=== PATIENT | male | born 1970 | race Caucasian/White ===

== ENCOUNTER → 2020-04-24 11:12 | Outpatient (BNVA) | payer OTHER, SELFPAY | PROVIDERS: Family Provider Family Medicine; Visit Provider Nurse Practitioner Family | DX: Z20.828 Contact with and (suspected) exposure to other viral communicable diseases (principal) | CPT/HCPCS: 87635 ==

== ENCOUNTER 2020-08-07 13:34 | Outpatient (CLI) | payer OTHER, SELFPAY ==
--- NOTE | 2020-08-07 14:00 | CT_ITS ---
WS: [id number] CT scan of the abdomen with Oral and IV contrast. Additional two-dimensional coronal and sagittal rec onstruction was performed. 08/07/2020 Clinical Data: LEFT UPPER QUADRANT ABDOMINAL PAIN, DIABETES MELLITUS Comparison: None. DLP: 754.[address] scans at [facility] use at least one of these dose optimization techniques: automat ed exposure control; mA and/or kV adjustment per patient size (includes targeted exams where dose is matched to clinical indication); or iterative reconstruction. Findings: The lower lungs show no nodules, masses or effusions. The liver, gallbladder, spleen, adrenal glands and pancreas are normal. The kidneys show equal bilateral contrast excretion a small intrarenal left cyst. No masses, hydronep hrosis or renal calculi are seen.. The abdominal aorta is normal in size with minimal calcification in the wall.. No appendicitis or diverticulitis is seen. Oral contrast is in the stomach and small bowel and there is no bowel dilatation. No abscess, adenopathy, ascites, mass, obstruction or free air is seen. There is a 0.7 cm spondylolisthesis at L5-S1 with bilateral spondylolysis. CT/CT abdomen w con* [id number] IMPRESSION: Negative for acute intra-abdominal abnormalities.
[2020-08-07] MEDS: iohexol 300 mg/mL 50 mL Btl PO (14:17)
[2020-08-07] MEDS: iohexol 300 mg/mL 100 mL Btl IV (14:32)
== END 2020-08-07 13:35 | disposition home or self-care (01) ==
LOC: RADWPI 13:39
PROVIDERS: PCP Family Medicine; Visit Provider Family Medicine
DX: R10.12 Left upper quadrant pain (principal); E11.40 Type 2 diabetes mellitus with diabetic neuropathy, unspecified
CPT/HCPCS: 74160; Q9967

== ENCOUNTER → 2020-08-28 14:17 | Outpatient (BNVA) | payer OTHER, SELFPAY | PROVIDERS: PCP Family Medicine; Referring Provider Family Medicine; Visit Provider Internal Medicine | DX: E07.9 Disorder of thyroid, unspecified (principal); E11.69 Type 2 diabetes mellitus with other specified complication; E66.9 Obesity, unspecified; N52.9 Male erectile dysfunction, unspecified; R10.13 Epigastric pain; R37 Sexual dysfunction, unspecified; R63.4 Abnormal weight loss | CPT/HCPCS: 99205 ==

== ENCOUNTER 2020-09-03 10:58 | Outpatient (CLI) | payer OTHER, SELFPAY ==
[2020-09-03 11:52] LABS: Free T4 Free Thyroxine 1.66 ng/dL (0.82-1.77); Lipase 36 U/L (13-60); Testosterone Total 324.5 ng/dL (249-836); Thyroid Stimulating Hormone 2.47 uIU/mL (0.27-4.20)
[2020-09-03 12:03] LABS: Cortisol Random 16.34 ug/mL (2.47-19.5)
[2020-09-04 12:18] LABS: T3 Total 134 ng/dL (76-181)
[2020-09-07 12:18] LABS: Testosterone, Free 40.3 pg/mL (46.0-224.0)
== END 2020-09-03 10:59 | disposition home or self-care (01) ==
LOC: LAB 11:04
PROVIDERS: PCP Family Medicine; Visit Provider Internal Medicine
DX: R63.4 Abnormal weight loss (principal); R10.9 Unspecified abdominal pain; E07.9 Disorder of thyroid, unspecified; N52.9 Male erectile dysfunction, unspecified; R37 Sexual dysfunction, unspecified
CPT/HCPCS: 36415; 82533; 83690; 84402; 84403; 84439; 84443; 84480

== ENCOUNTER → 2020-09-12 10:02 | Outpatient (BNVA) | payer OTHER, SELFPAY | PROVIDERS: PCP Family Medicine; Visit Provider Internal Medicine | DX: E11.9 Type 2 diabetes mellitus without complications (principal); N52.9 Male erectile dysfunction, unspecified; R10.13 Epigastric pain; R63.4 Abnormal weight loss; R79.89 Other specified abnormal findings of blood chemistry | CPT/HCPCS: 99214 ==

== ENCOUNTER 2020-09-19 07:56 | Outpatient (CLI) | payer OTHER, SELFPAY ==
[2020-09-19 10:14] LABS: Luteinizing Hormone 2.9 mIU/mL (1.7-8.6)
[2020-09-19 13:17] LABS: Testosterone Total 363.8 ng/dL (249-836)
[2020-09-19 13:18] LABS: Estmated Average Glucose 128; Hemoglobin A1C 6.1 % (4.0-6.0)
[2020-09-23 20:08] LABS: Testosterone, Free 38.5 pg/mL (46.0-224.0)
== END 2020-09-19 07:57 | disposition home or self-care (01) ==
PROVIDERS: PCP Family Medicine; Visit Provider Internal Medicine
DX: R79.89 Other specified abnormal findings of blood chemistry (principal); E11.9 Type 2 diabetes mellitus without complications
CPT/HCPCS: 83001; 83002; 83036; 84402; 84403

== ENCOUNTER 2020-09-26 07:41 | Outpatient (CLI) | payer OTHER, SELFPAY ==
[2020-10-02 15:43] LABS: Testosterone, Free 29.7 pg/mL (46.0-224.0)
== END 2020-09-26 07:42 | disposition home or self-care (01) ==
PROVIDERS: PCP Family Medicine; Visit Provider Internal Medicine
DX: R79.89 Other specified abnormal findings of blood chemistry (principal)
CPT/HCPCS: 84402

== ENCOUNTER → 2023-03-29 13:08 | Outpatient (BNVA) | payer OTHER, SELFPAY | PROVIDERS: PCP Family Medicine; Visit Provider Clinical Nurse Specialist Adult Health | DX: R00.2 Palpitations (principal) | CPT/HCPCS: 80053; 80061; 83036; 84443; 85025 ==

== ENCOUNTER 2023-04-08 14:46 | Outpatient (CLI) | payer OTHER, SELFPAY ==
--- NOTE | 2023-04-08 15:00 | USCV_ITS ---
Tico Nichole Age: 52 Gender: M : 1970 Exam Date: 04/08/2023 15:00 Ordering Phys: Rodriguez Wagoner NP Technologist: RADHA Exam Location: [facility] [place] Indication: Palp, SOB and pain lt shoulder BP: 132 / 98 HR: 64 Rhythm: Sinus Technical Quality: Adequate MEASUREMENTS (Male / Female) Normal Values 2D ECHO LV Diastolic Diameter PLAX 4.2 cm 4.2 - 5.9 / 3.9 - 5.3 cm LV Systolic Diameter PLAX 2.6 cm IVS Diastolic Thickness 1.1 cm 0.6 - 1.0 / 0.6 - 0.9 cm IVS Systolic Thickness 1.1 cm LVPW Diastolic Thickness 1.2 cm 0.6 - 1.0 / 0.6 - 0.9 cm LVPW Systolic Thickness 1.5 cm LVOT Diameter 2.1 cm LV Ejection Fraction 2D Teich 69.7 % LV Ejection Fraction MOD 2C 64.5 % LV Ejection Fraction 2C AL 65.4 % LA Diameter 2.7 cm LA Width 2.5 cm LA Height 3.1 cm RA Width 3.6 cm RA Height 3.7 cm Aorta at Sinotubular Diameter 3.3 cm IVC Diameter 2.0 cm M-MODE Aortic Annulus Diameter 3.9 cm LA Ao Ratio MM 0.8 MV E Point Septal Separation 0.5 cm DOPPLER AV Peak Velocity 108.0 cm/s LVOT Peak Velocity 101.0 cm/s AV Area Cont Eq vti 3.0 cm squared AV Area Cont Eq pk 3.1 cm squared MV Area PHT 3.9 cm squared Mitral E to A Ratio 1.2 MV E' Velocity 44.0 cm/s Mitral E to MV E' Ratio 6.9 Mitral E to LV E' Lateral Ratio 5.2 Mitral E to LV E' Septal Ratio 10.4 TR Peak Velocity 136.4 cm/s TR Peak Gradient 7.4 mmHg TR Mean Velocity 99.7 cm/s TR Mean Gradient 4.6 mmHg TR Velocity Time Integral 32.0 cm TV Peak E Velocity 63.0 cm/s RV Acceleration Time 0.1 s RV Ejection Time 0.4 s RV AcT/ET 0.3 FINDINGS Left Ventricle Left ventricle is normal in size. LV systolic function is normal with EF of 60 to 65%. No regional wall motion abnormalities are seen. Right Ventricle Normal in size and function Right Atrium Normal in size Left Atrium Normal in size Mitral Valve Structurally normal mitral valve. Aortic Valve Structurally normal aortic valve. No significant stenosis or regurgitation. Tricuspid Valve Mild tricuspid regurgitation. Insufficient TR jet to calculate RVSP Pulmonic Valve Not well visualized Pericardium Normal Aorta Normal in size IVC Appears to be normal CONCLUSIONS LV systolic function is normal with EF of 60 to 65%. Mild tricuspid vegetation No comparison studies are available. Douglas Bell MD (Electronically Signed) Final Date: 26 April 2023 18:26 S
== END 2023-04-08 14:47 | disposition home or self-care (01) ==
PROVIDERS: PCP Family Medicine; Visit Provider Clinical Nurse Specialist Adult Health
DX: R00.2 Palpitations (principal); I07.1 Rheumatic tricuspid insufficiency
CPT/HCPCS: 93306